=== PATIENT | female | born 1960 | race Caucasian/White ===

== ENCOUNTER 2019-06-23 06:53 | Day surgery (SDC) | payer BC ==
[2019-06-23] MEDS ORDERED: LIDOCAINE 4% SOLUTION 50 ML BTL (08:30)
[2019-06-23] MEDS ORDERED: MIDAZOLAM 1 MG/ML 2 ML INJ ×2 (09:38)
[2019-06-23] MEDS ORDERED: FENTAnyl 50 MCG/ML VIAL (09:38)
== END 2019-06-23 14:10 | disposition home or self-care (01) ==
LOC: GIL 06:53
DX: Z12.11 Encounter for screening for malignant neoplasm of colon (principal); D12.3 Benign neoplasm of transverse colon; K29.50 Unspecified chronic gastritis without bleeding
CPT/HCPCS: 43239; 88305; 88312